=== PATIENT | male | born 1970 | race Caucasian/White ===

== ENCOUNTER 2016-08-28 12:01 | Emergency (ER) | payer MEDICARE ==
[~2016-08-28 12:01] MED LIST: A/T/S 2% GEL30 GM TOP; ACULAR10 ML OS; AMOXICILLIN875 MG PO; BACTRIM DS TABL1 TAB PO; BENZONATATE PO; CILOXAN5 ML OP; ERYTHROMYCIN O3.5 GM OD; HUMALOG MIX 50/53 M1 SUBQ; HUMALOG MIX 75/10 ML SUBQ; HUMULIN 70/30 V10 ML SUBQ; HUMULIN 70100 UNIT/2 SUBQ; HUMULIN R100 U/ML SUBQ; HYDROCODONE-APA1 T57 PO; ILOTYCIN OPTHALMIC OS; ILOTYCIN1 GM OD; ILOTYCIN1 GM OS; LORTAB 10/500 T1 TAB PO; LORTAB 5-325 M1 EACH PO; LORTAB 5/500 TA1 TA1 PO; MEDROL DOSEPAK4 MG PO; NOVOLIN 70/30 V10 ML INJ; NOVOLOG MIX 70/10 ML; NOVOLOG100 UNITS/ SUBQ; NOVOLOG7030 SUBQ; PERCOCET 7.5/321 TAB PO; TOBRADEX EYE O3.5 GM OP; VICODIN 5/500 T1 TAB PO; ZITHROMAX PO; ZOVIRAX800 MG PO
== END 2016-08-28 16:53 | disposition left against medical advice (07) ==
LOC: CED 12:01
DX: Z53.21 Procedure and treatment not carried out due to patient leaving prior to being seen by health care provider (principal)

== ENCOUNTER 2016-10-13 15:27 | Emergency (ER) | payer MEDICARE ==
[~2016-10-13] VITALS: Ht 185.4 cm; Wt 77.1 kg
== END 2016-10-13 16:49 | disposition home or self-care (01) ==
LOC: CED 15:27 → CFTX 15:27
DX: S61.412A Laceration without foreign body of left hand, initial encounter (principal); E11.9 Type 2 diabetes mellitus without complications; F17.200 Nicotine dependence, unspecified, uncomplicated; W26.8XXA Contact with other sharp object(s), not elsewhere classified, initial encounter; Y92.009 Unspecified place in unspecified non-institutional (private) residence as the place of occurrence of the external cause
CPT/HCPCS: 12001; 99283

== ENCOUNTER 2016-11-11 13:53 | Emergency (ER) | payer MEDICARE ==
[~2016-11-11] VITALS: Ht 185.4 cm; Wt 79.4 kg
--- NOTE | ~2016-11-11 | CR108 ---
[facility] A Service of [facility] & [facility] RADIOLOGY TEXT RESULTS PATIENT: POLI RIVERS LOCATION: [facility] : 70 UNIT #: [id number] AGE: [address]: Radha Ruth APRN SEX: M ORDER DR: [id number] [facility] [address] [place], [place] [address] [id number] E MR#: [id number] Acc #: [id number] NAME: POLI RIVERS : 1970 SEX: M STUDY DATE/TIME: 11/11/2016 19:04 UNIT: TX ROOM: STUDY DESCRIPTION: CR Finger 2 View 2nd Lt Attending Physician: Radha Ruth A.P.R.N. Ordering Physician: Ed Doctor [id number] [facility] Primary Care Physician: Daryl Logan M.D. MEDICAL IMAGING REPORT This report is preliminary unless electronic signature is present EXAM Left index finger series, 11/11/2016 COMPARISON None HISTORY Pain, swelling and redness with laceration of the left second digit for one month. FINDINGS Three views of the left finger were obtained. No acute displaced fracture, dislocation. There is probably some soft tissue injury noted along the dorsal aspect of the mid finger overlying the middle phalanx with some associated mild opacity. Correlate clinically and exclude underlying foreign body. Dictated by... Viola Taylor M.D. THIS IS AN ELECTRONICALLY VERIFIED REPORT Viola Taylor M.D. at 11/15/2016 10:00 PM CPR/sonia TD: 11/12/2016 15:43 JOB #: [id number] MEDICAL IMAGING REPORT Page 1 of 1 COPY
[2016-11-11 19:44] LABS: BASOPHIL% 0.5 % (0-2.5); EOSINOPHIL# 0.2 X10e3 (0-0.7); HEMATOCRIT 41.2 % (38.0-50.0); HEMOGLOBIN 14.2 gm/dL (13.0-16.0); LYMPHOCYTE# 1.8 X10e3 (1.0-3.5); MEAN CELL VOLUME 103.2 FL (83-96); MEAN CORPUSCULAR HEMOGLOBIN 35.4 PG (28-34); MEAN CORPUSCULAR HGB CONC 34.3 g/dL (30-36); MEAN PLATELET VOLUME 8.2 FL (6.5-11.5); MONOCYTE% 13.6 % (3.0-12.0); NEUTROPHIL# 4.7 X10e3 (1.5-7.1); NEUTROPHIL% 60.9 % (40-75); PLATELET COUNT 339 X10e3 (140-420); RED BLOOD COUNT 3.99 X10e (3.90-5.60); RED CELL DISTRIBUTION WIDTH 13.6 % (11.0-15.5); WHITE BLOOD COUNT 7.7 X10e3 (4.0-10.5)
[2016-11-11 19:46] LABS: DIFF IND NO
[2016-11-11 20:02] LABS: ALBUMIN SERUM 3.4 g/dL (3.5-5.0); BILIRUBIN,TOTAL 0.4 mg/dL (0.2-2.0); BUN/CREATININE RATIO 15.71; CALCIUM SERUM 8.8 mg/dL (8.4-10.2); CREATININE SERUM 0.7 mg/dL (0.6-1.4); GLOM FILT RATE Estimated 113.2 mL/min (>60); POTASSIUM 4.1 mmol/L (3.5-5.1)
== END 2016-11-11 21:03 | disposition home or self-care (01) ==
LOC: CFTX 13:53 → CED 13:53 → CFTX 19:03
PROVIDERS: Nurse Practitioner
DX: S60.022A Contusion of left index finger without damage to nail, initial encounter (principal); E11.9 Type 2 diabetes mellitus without complications; F17.210 Nicotine dependence, cigarettes, uncomplicated; W22.8XXA Striking against or struck by other objects, initial encounter; Y92.009 Unspecified place in unspecified non-institutional (private) residence as the place of occurrence of the external cause
CPT/HCPCS: 36415; 73140; 80053; 82947; 85025; 87040; 96365; 96375; 99283; J0690